=== PATIENT | female | born 1960 | race Caucasian/White ===

== ENCOUNTER 2016-10-26 21:45 | Emergency (ER) | payer BC ==
[2016-10-26 21:56] VITALS: BP 148/73
--- NOTE | 2016-10-26 22:13 | EDM.PDOC ---
[id number]: COPD LOW OXYGEN LEVELS Time Seen by Provider: 10/26/16 21:55 Source of Information: Reports: Patient History Limitations: Reports: No Limitations - History of Present Illness INITIAL COMMENTS - FREE TEXT/NARRATIVE: The patient is a 56-year-old female with a history of COPD who comes in with a chief complaint of cough and shortness of breath. She states she's been ill for about 3 weeks. She's had a persistent cough. It is not productive. No fever but she has had the chills. Over the past couple of days she's also had worsening rhinorrhea and nasal congestion. This makes it hard for her to breathe through her nasal cannula at home. She's been using her oxygen at home. She's also been using nebulizer treatments which helped temporarily. She has not been on steroids or antibiotics recently. No ill contacts. Using home oximeter shows oxygen saturations in the high 80s and low 90s. Treatments DOUBLE NEEDLE STITCHER: Reports: Other (see below) Other Treatments DOUBLE NEEDLE STITCHER: inhaler and neb - Related Data Allergies Allergy/AdvReac Type Severity Reaction Status Date / Time No Known Allergies Allergy Verified 10/01/15 09:58 Home Meds: Home Meds ALPRAZolam [Alprazolam] 0.5 mg PO Q12HR PRN 10/01/15 [History] Albuterol [IJD: Ventolin HFA] 2 inhalation PO DAILY PRN 10/01/15 [History] Allopurinol [Zyloprim] 300 mg PO DAILY 10/01/15 [History] Atenolol 50 mg PO BID 10/01/15 [History] Gemfibrozil 600 mg PO BID 10/01/15 [History] Hydrochlorothiazide 25 mg PO DAILY 10/01/15 [History] Levothyroxine [Synthroid] 50 mcg PO ACBREAKFAST 10/01/15 [History] Simvastatin [Zocor] 40 mg PO BEDTIME 10/01/15 [History] Aspirin 162 mg PO BRK #30 tab.chew 10/04/15 [Rx] Nicotine [Habitrol] 21 mg TRDERM DAILY #30 patch 10/04/15 [Rx] Roflumilast [Daliresp] 500 mcg PO DAILY #30 tablet 10/04/15 [Rx] Albuterol/Ipratropium [DuoNeb 3.0-0.5 MG/3 ML] 3 ml NEB Q4H PRN #30 neb [Rx] Doxycycline [Vibramycin] 100 mg PO Q12HR #20 cap 10/26/16 [Rx] Fluticasone Propionate 1 spray NS DAILY #1 bottle 10/26/16 [Rx] Prednisone [IJD: predniSONE] 60 mg PO DAILY #4 dose 10/26/16 [Rx] Pseudoephedrine [Sudogest] 30 mg PO Q6H PRN #30 tablet 10/26/16 [Rx] Past Medical History Cardiovascular History: Reports: High Cholesterol, Hypertension Respiratory History: Reports: COPD, Pneumonia, Recurrent, Sleep Apnea Genitourinary History: Reports: Renal Calculus Other Genitourinary History: 2001 kidney stone removed laparascopically and stent placed Musculoskeletal History: Reports: Gout, Osteoarthritis Psychiatric History: Reports: Anxiety Endocrine/Metabolic History: Reports: Hypothyroidism Hematologic History: Reports: Other (See Below) Other Hematologic History: today HGB is 19.9 Other Dermatologic History: brown discoloration (freckles) noted to bilateral feet and legs - Past Surgical History Other Musculoskeletal Surgeries/Procedures:: 2005 surgery on neck to fuse c 4-5- 6 Social & Family History - Family History Cardiac: Reports: CAD, Hypertension, [place] GI: Reports: Colon Polyps Musculoskeletal: Reports: Arthritis Psychiatric: Reports: Anxiety Endocrine/Metabolic: Reports: Diabetes, type II Oncologic: Reports: Other (See Below) Other Oncologic Family History: stomach - Tobacco Use Smoking Status *Q: Current Every Day Smoker Years of Tobacco use: 37 Packs/Tins Daily: 1 Used Tobacco, but Quit: No Second Hand Smoke Exposure: No - Caffeine Use Caffeine Use: Reports: None - Recreational Drug Use Recreational Drug Use: No - Living Situation & Occupation Living situation: Reports: ED ROS GENERAL - Review of Systems Review Of Systems: See Below Constitutional: Reports: Chills, Malaise, Weakness, Fatigue. Denies: Fever HEENT: Reports: Rhinitis, Throat Pain Respiratory: Reports: Shortness of Breath, Cough Cardiovascular: Denies: Chest Pain, Edema GI/Abdominal: Reports: Nausea. Denies: Abdominal Pain, Vomiting ED EXAM, GENERAL - Physical Exam Exam: See Below Exam Limited By: No Limitations General Appearance: Alert, WD/WN, No Apparent Distress Eye Exam: Bilateral Eye: Normal Inspection Ears: Normal External Exam Nose: Normal Inspection, Normal Mucosa, No Blood, Nasal Drainage Throat/Mouth: Normal Inspection, Normal Oropharynx, Normal Voice, No Airway Compromise Head: Atraumatic, Normocephalic Neck: Normal Inspection, Supple, Non-Tender, Full Range of Motion Respiratory/Chest: No Respiratory Distress, Lungs Clear, No Accessory Muscle Use , Chest Non-Tender, Decreased Breath Sounds Cardiovascular: Normal Peripheral Pulses, Regular Rate, Rhythm, No Murmur GI/Abdominal: Soft, Non-Tender, No Distention. No: Rebound, Tender Back Exam: Normal Inspection Neurological: Alert, Oriented, Normal Cognition, No Motor/Sensory Deficits Psychiatric: Normal Affect, Normal Mood Skin Exam: Warm, Dry, Intact, Normal Color, No Rash Course - Vital Signs Last Recorded V/S: Last Vital Signs Temp 36.1 C 10/26/16 21:54 Pulse 77 10/26/16 21:54 Resp 24 H 10/26/16 21:54 BP 148/73 H 10/26/16 21:54 Pulse Ox 92 L 10/26/16 22:41 - Orders/Labs/Meds Orders: Active Orders 24 hr Category Date Time Status EKG Documentation Completion [RC] STAT Care 10/26/16 22:02 Active RT Aerosol Therapy [RC] ASDIRECTED Care 10/26/16 22:31 Active Chest 1V Frontal [CR] Stat Exams 10/26/16 22:12 Taken Meds: Medications Discontinued Medications Generic Name Dose Route Start Last Admin Trade Name Freq PRN Reason Stop Dose Admin Albuterol/Ipratropium 3 ml 10/26/16 22:31 10/26/16 22:41 Duoneb 3.0-0.5 Mg/3 Ml NEB 10/26/16 22:32 3 ml ONETIME ONE Administration Doxycycline Hyclate 100 mg 10/26/16 22:29 10/26/16 22:39 Vibramycin PO 10/26/16 22:30 100 mg ONETIME ONE Administration Prednisone 60 mg 10/26/16 22:29 10/26/16 22:39 Prednisone PO 10/26/16 22:30 60 mg ONETIME ONE Administration - Re-Assessments/Exams Free Text/Narrative Re-Assessment/Exam: 10/26/16 23:16 EKG shows nonspecific T wave flattening inferior and lateral leads, similar to prior. CXR shows no ptx or pna, similar to prior. Will treat for COPD exacerbation/bronchitis as well as recommend decongestants and nasal spray. Discussed return precautions/need for follow-up. Departure - Departure Time of Disposition: 22:34 Disposition: Home, Self-Care 01 Clinical Impression: COPD exacerbation, Bronchitis - Discharge Information Prescriptions: Doxycycline [Vibramycin] 100 mg PO Q12HR #20 cap Albuterol/Ipratropium [DuoNeb 3.0-0.5 MG/3 ML] 3 ml NEB Q4H PRN #30 neb PRN Reason: Wheezing Fluticasone Propionate 1 spray NS DAILY #1 bottle Prednisone [IJD: predniSONE] 60 mg PO DAILY #4 dose Pseudoephedrine [Sudogest] 30 mg PO Q6H PRN #30 tablet PRN Reason: nasal congestion Instructions: Chronic Obstructive Pulmonary Disease Exacerbation, [id number] , Acute Bronchitis, [id number] Referrals: Krysten Live, PIT HOIST OPERATOR [Primary Care Provider] - Forms: ED Department Discharge - My Orders Last 24 Hours: My Active Orders 10/26/16 22:02 EKG Documentation Completion [RC] STAT 10/26/16 22:12 Chest 1V Frontal [CR] Stat 10/26/16 22:31 RT Aerosol Therapy [RC] ASDIRECTED - Assessment/Plan Last 24 Hours: My Active Orders 10/26/16 22:02 EKG Documentation Completion [RC] STAT 10/26/16 22:12 Chest 1V Frontal [CR] Stat 10/26/16 22:31 RT Aerosol Therapy [RC] ASDIRECTED
[2016-10-26] MEDS ORDERED: predniSONE 20 MG Tab PO ONE (22:29)
[2016-10-26] MEDS ORDERED: Doxycycline 100 MG Cap PO ONE (22:29)
[2016-10-26] MEDS ORDERED: Albuterol/Ipratropium 3.0-0.5 MG/3 ML Neb Soln NEB ONE (22:31)
--- NOTE | 2016-10-27 06:50 | CR ---
Chest: Portable view of the chest was obtained. Comparison: Previous chest x-ray of 09/27/15. Heart size and mediastinum are normal. Minimal atelectasis within the right midlung is seen. Lungs otherwise are clear. Previous cervical spine surgery is seen. Bony structures are otherwise grossly intact. Impression: 1. Minimal atelectasis. Nothing acute is appreciated on portable chest x-ray. Diagnostic code #2
== END 2016-10-26 23:23 | disposition home or self-care (01) ==
LOC: JD.ED 21:45
DX: J44.1 Chronic obstructive pulmonary disease with (acute) exacerbation (principal); I10 Essential (primary) hypertension; M19.90 Unspecified osteoarthritis, unspecified site; F41.9 Anxiety disorder, unspecified; E03.9 Hypothyroidism, unspecified; F17.210 Nicotine dependence, cigarettes, uncomplicated; Z87.442 Personal history of urinary calculi; Z87.01 Personal history of pneumonia (recurrent); Z98.1 Arthrodesis status; Z79.899 Other long term (current) drug therapy
CPT/HCPCS: 71010; 93005; 94664; 99284; A9270

== ENCOUNTER 2019-05-27 18:11 | Emergency (ER) | payer BC ==
[2019-05-27 18:35] VITALS: BP 136/81; PULSE 70
--- NOTE | 2019-05-27 21:20 | EDM.PDOC ---
ED HPI GENERAL MEDICAL PROBLEM - General Chief Complaint: Respiratory Problem Stated Complaint: SOB Time Seen by Provider: 05/27/19 20:42 Source of Information: Reports: Patient, Family () History Limitations: Reports: No Limitations - History of Present Illness INITIAL COMMENTS - FREE TEXT/NARRATIVE: Mrs. Shi is a very pleasant 58-year-old woman with a past medical history significant for alpha-1 antitrypsin deficiency and PFT-proven COPD, along with obstructive sleep apnea on nightly nasal CPAP, who now presents to the ED stating that she has had 8 to 10 days of dyspnea, progressively worsening, particularly over the last 3 to 4 days, along with 8 to 10 days of a cough that was initially nonproductive, but has since become productive of greenish sputum. She has felt feverish, feeling hot, cold, and achy for the past 10 days , but has not actually had a fever. She has not been wheezing. No sore throat or ear pain. She states that she was seen at the [facility] yesterday, Friday, 2019, where an influenza swab was negative, and she was told that a chest x-ray and blood work was unremarkable. She notes that her oxygen saturation was found to be 86% on room air, but that nothing was done about that. She was prescribed a 5-day course of prednisone 20 mg/day. She took 1 dose yesterday, but has not taken any today. The patient states that she has been using her albuterol nebulizer 3-4 times a day, without any relief of her symptoms. She has not been using her albuterol MDI. The patient checks her blood glucose sporadically. The last time she checked it was 05/24/2019, finding it to be 134 which is a little high for her. Other than the above symptoms, the patient denies recent chest pain, palpitations, abdominal pain, urinary symptoms, recent weight gain or weight loss, recent bloody bowel movements or black bowel movements, recent joint aches , headaches, or rashes. Here in the ED, the patient is found to be hemodynamically stable and afebrile, but with an oxygen saturation of 75% on room air, up to 90% on 4 L of oxygen per nasal cannula. The patient's PCP is BASHIR Wade, in [place]. Her Flight Technician is Dr. Elaine Quiroz. She last saw Dr. Quiroz in 2016. She did not receive an influenza vaccine this season, and declined an offer to receive one here today. - Related Data Allergies Allergy/AdvReac Type Severity Reaction Status Date / Time No Known Allergies Allergy Verified 10/01/15 09:58 Home Meds: Home Meds ALPRAZolam [Alprazolam] 0.5 mg PO Q12HR PRN 10/01/15 [History] Albuterol [IJD: Ventolin HFA] 2 inhalation PO DAILY PRN 10/01/15 [History] Allopurinol [Zyloprim] 300 mg PO DAILY 10/01/15 [History] Gemfibrozil 600 mg PO BID 10/01/15 [History] Hydrochlorothiazide 25 mg PO DAILY 10/01/15 [History] Levothyroxine [Synthroid] 50 mcg PO ACBREAKFAST 10/01/15 [History] Simvastatin [Zocor] 40 mg PO BEDTIME 10/01/15 [History] atenoloL [Atenolol] 50 mg PO BID 10/01/15 [History] Aspirin 162 mg PO BRK #30 tab.chew 10/04/15 [Rx] Nicotine [Habitrol] 21 mg TRDERM DAILY #30 patch 10/04/15 [Rx] Roflumilast [Daliresp] 500 mcg PO DAILY #30 tablet 10/04/15 [Rx] Albuterol/Ipratropium [DuoNeb 3.0-0.5 MG/3 ML] 3 ml NEB Q4H PRN #30 neb [Rx] Doxycycline [Vibramycin] 100 mg PO Q12HR #20 cap 10/26/16 [Rx] Fluticasone Propionate 1 spray NS DAILY #1 bottle 10/26/16 [Rx] Prednisone [IJD: predniSONE] 60 mg PO DAILY #4 dose 10/26/16 [Rx] Pseudoephedrine [Sudogest] 30 mg PO Q6H PRN #30 tablet 10/26/16 [Rx] Past Medical History Cardiovascular History: Reports: High Cholesterol, Hypertension Respiratory History: Reports: COPD (PFT-proven), Sleep Apnea (nightly nasal CPAP 13), Other (See Below) (Alpha-1 antitrypsin deficiency) Genitourinary History: Reports: Renal Calculus, Urinary Incontinence (stress incontinence) Psychiatric History: Reports: Anxiety Endocrine/Metabolic History: Reports: Diabetes, Type II, Hypothyroidism, Obesity /BMI 30+ - Past Surgical History Female Surgical History: Reports: Ureteral Stent (2001), Other (See Below) ( Ureterolith extraction) Neurological Surgical History: Reports: C-Spine (C4-C6 ACDF 2005) Social & Family History - Family History Cardiac: Reports: CAD, Hypertension, RI GI: Reports: Colon Polyps Musculoskeletal: Reports: Arthritis Psychiatric: Reports: Anxiety Endocrine/Metabolic: Reports: Diabetes, type II Oncologic: Reports: Other (See Below) Other Oncologic Family History: stomach - Tobacco Use Smoking Status *Q: Current Every Day Smoker Years of Tobacco use: 40 Packs/Tins Daily: 1 Packs/Tins Daily Comment: Down from 2 ppd - Caffeine Use Caffeine Use: Reports: Coffee - Alcohol Use Alcohol Use History: No - Recreational Drug Use Recreational Drug Use: No - Living Situation & Occupation Living situation: Reports: , with Spouse Occupation: Unemployed ED ROS GENERAL - Review of Systems Review Of Systems: Comprehensive ROS is negative, except as noted in HPI. ED EXAM, GENERAL - Physical Exam Exam: See Below Exam Limited By: No Limitations General Appearance: Alert, WD/WN, No Apparent Distress Eye Exam: Bilateral Eye: EOMI, Normal Inspection Ears: Normal External Exam, Normal Canal, Hearing Grossly Normal, Normal TMs Nose: Normal Inspection, Normal Mucosa, No Blood Throat/Mouth: Normal Inspection, Normal Lips, Normal Teeth, Normal Gums, Normal Oropharynx, Normal Voice, No Airway Compromise Head: Atraumatic, Normocephalic Neck: Normal Inspection, Supple, Non-Tender, Full Range of Motion. No: Lymphadenopathy (L), Lymphadenopathy (R) Respiratory/Chest: No Respiratory Distress, No Accessory Muscle Use, Decreased Breath Sounds (throughout), Prolonged Expiration (mild). No: Crackles, Rhonchi , Wheezing, Stridor Cardiovascular: Normal Peripheral Pulses, Regular Rate, Rhythm, No Edema, No Gallop, No JVD, No Murmur, No Rub Peripheral Pulses: 4+: Radial (L), Radial (R) GI/Abdominal: Normal Bowel Sounds, Soft, Non-Tender, No Organomegaly, No Distention, No Abnormal Bruit, No Mass (Female) Exam: Deferred Rectal (Female) Exam: Deferred Back Exam: Normal Inspection, Full Range of Motion, NT Extremities: Normal Inspection, Normal Range of Motion, No Pedal Edema, Normal Capillary Refill Neurological: Alert, Oriented, Normal Cognition, No Motor/Sensory Deficits Psychiatric: Normal Affect Skin Exam: Warm, Dry, Intact, Normal Color, No Rash Course - Vital Signs Last Recorded V/S: Last Vital Signs Temp 36.7 C 05/27/19 18:29 Pulse 70 05/27/19 18:29 Resp 18 05/27/19 18:29 BP 136/81 05/27/19 18:29 Pulse Ox 75 L 05/27/19 18:29 - Orders/Labs/Meds Orders: Active Orders 24 hr Category Date Time Status Chest 1V Frontal [CR] Stat Exams 05/27/19 18:48 Taken CULTURE BLOOD [BC] Stat Lab 05/27/19 19:16 Received CULTURE BLOOD [BC] Stat Lab 05/27/19 19:25 Received INFLUENZA A+B AG SCREEN [RM] Stat Lab 05/27/19 18:48 Ordered Blood Culture x2 Reflex Set [OM.PC] Stat Oth 05/27/19 18:48 Ordered Labs: Laboratory Tests 05/27/19 05/27/19 05/27/19 Range/Units 19:16 19:16 19:16 WBC 10.58 H (3.98-10.04) K/mm3 RBC 5.44 H (3.98-5.22) M/mm3 Hgb 17.3 H (11.2-15.7) gm/dl Hct 49.7 H (34.1-44.9) % MCV 91.4 D (79.4-94.8) fl MCH 31.8 (25.6-32.2) pg MCHC 34.8 (32.2-35.5) g/dl RDW Std Deviation 47.3 H (36.4-46.3) fL Plt Count 319 D (182-369) K/mm3 MPV 10.1 (9.4-12.3) fl Neut % (Auto) 63.0 (34.0-71.1) % Lymph % (Auto) 22.3 (19.3-51.7) % [place] % (Auto) 12.5 (4.7-12.5) % Eos % (Auto) 1.3 (0.7-5.8) Baso % (Auto) 0.2 (0.1-1.2) % Neut # (Auto) 6.67 H (1.56-6.13) K/mm3 Lymph # (Auto) 2.36 (1.18-3.74) K/mm3 [place] # (Auto) 1.32 H (0.24-0.36) K/mm3 Eos # (Auto) 0.14 (0.04-0.36) K/mm3 Baso # (Auto) 0.02 (0.01-0.08) K/mm3 Manual Slide Review Normal smear D-Dimer, Quantitative < 0.19 L (0.19-0.50) mg/L Sodium 142 (136-145) mEq/L Potassium 2.9 L (3.5-5.1) mEq/L Chloride 99 (98-107) mEq/L Carbon Dioxide 30 (21-32) mEq/L Anion Gap 15.9 H (5-15) BUN 29 H (7-18) mg/dL Creatinine 1.3 H (0.55-1.02) mg/dL Est Cr Clr Drug Dosing 44.70 mL/min Estimated GFR (MDRD) 42 (>60) mL/min BUN/Creatinine Ratio 22.3 H (14-18) Glucose 117 H (74-106) mg/dL Calcium 9.6 (8.5-10.1) mg/dL Total Bilirubin 0.8 (0.2-1.0) mg/dL AST 21 (15-37) U/L ALT 45 (14-59) U/L Alkaline Phosphatase 68 (46-116) U/L C-Reactive Protein 0.6 (<1.0) mg/dL Total Protein 8.6 H (6.4-8.2) g/dl Albumin 4.0 (3.4-5.0) g/dl Globulin 4.6 gm/dL Albumin/Globulin Ratio 0.9 L (1-2) Meds: Medications Discontinued Medications Generic Name Dose Route Start Last Admin Trade Name Freq PRN Reason Stop Dose Admin Potassium Chloride 40 meq 05/27/19 21:59 05/27/19 22:12 Klor-Con M20 PO 05/27/19 22:00 40 meq ONETIME ONE Administration - Re-Assessments/Exams Free Text/Narrative Re-Assessment/Exam: 05/27/19 21:15 As above, the patient has been suffering with viral URI-like symptoms for the past 8 to 10 days, including cough productive of greenish sputum and dyspnea without wheezing. She was told that her oxygen saturation was low yesterday when seen at the [facility], and her oxygen saturation is quite low here, as well. Currently she is saturating about 90% on 4 L of oxygen per nasal cannula. The triage nurse ordered a work-up including a CBC, CMP, CRP, D-dimer, 2 sets of blood cultures, a portable chest x-ray, and an influenza swab. All of these have been seen, with the exception of the influenza swab, which the patient declined, since she just had a negative one yesterday. 05/27/19 21:30 Portable chest radiograph appears to be grossly normal. The cardiac silhouette is within normal limits. No pulmonary vascular congestion. No pleural effusions. No focal infiltrate. No pneumothorax. Formal read per the Radiologist pending. 05/27/19 21:59 The patient CBC is remarkable for a WBC count elevated at 10.58, but with a normal smear and no bandemia. Her H/H is elevated at 17.3/49.7, with the remainder of her CBC being unremarkable. Her CMP is remarkable for a potassium depressed at 2.9, and anion gap elevated at 15.9 with a bicarbonate normal at 30, a BUN/Cr elevated at 29/1.3, and a blood glucose elevated at 117, with the remainder of her CMP being unremarkable. Her CRP is within normal limits at 0.6. Her D-dimer is undetectably low. The patient's potassium is likely depressed because of the albuterol that she has been taking. I have ordered 40 mEq of oral KCl. The patient's BUN/Cr was 17/1.0 on 10/03/2015. I suspect that the patient has underlying emphysema, but primarily emphysema, not so much chronic bronchitis, and that her current symptoms are due to a viral URI, possibly with a postnasal drip, causing her cough, as opposed to a COPD exacerbation. She has no wheezing or rhonchi on auscultation, and acknowledges that she has not been wheezing. These features are not consistent with either acute or chronic bronchitis. Additionally, her symptoms did not improve with albuterol, which is not consistent with chronic bronchitis. For today's purposes, I believe the patient can safely be discharged home, but we need to arrange for supplemental oxygen. Currently she is saturating 92% on 4 L per nasal cannula. [facility] will be coming to the ED tonight to provide the patient with oxygen that she can go home with. I would then like her to follow-up with her Flight Technician at the next available appointment to make more permanent arrangements. With respect to the patient's hypokalemia and renal insufficiency, I advised the patient to eat high-potassium foods and stay well-hydrated. I would like her to follow-up with her PCP to have a chemistry panel repeated in about 1 week. The patient is agreeable. Departure - Departure Time of Disposition: 23:02 Disposition: Home, Self-Care 01 Clinical Impression: Viral URI with cough, Hypoxemia, Hypokalemia, Renal insufficiency - Discharge Information *PRESCRIPTION DRUG MONITORING PROGRAM REVIEWED*: Not Applicable *COPY OF PRESCRIPTION DRUG MONITORING REPORT IN PATIENT TANISHA: Not Applicable Instructions: Hypoxia, Upper Respiratory Infection, Adult, [id number] Referrals: Kate Live PA [Primary Care Provider] - Elaine Quiroz MD [Ordering Only Provider] - Forms: ED Department Discharge Additional Instructions: You were seen in the emergency room for 8 to 10 days of a cough and shortness of breath. Work-up in the ER included blood work, 2 sets of blood cultures, and a chest x- ray. Your work-up found your potassium to be low at 2.9, and your kidney function to be decreased. Her oxygen saturation was found to be significantly depressed at 75% on room air, up to 90% on 4 L of oxygen per nasal cannula. The remainder of your work-up was unremarkable. You do not have pneumonia. You do not have a blood clot in your lungs. Based on your history, physical exam, and ER test, your cough and shortness of breath is most likely due to a viral upper respiratory infection. As discussed, unfortunately, there are no medicines to treat a viral URI - it will have to run its course. Your oxygen saturation was low enough that you require supplemental oxygen at all times. [facility] have set you up with supplemental oxygen. We recommend that you follow-up with your electrical maintenance man, Dr. Elaine Quiroz, at the next available appointment. We recommend that you eat foods rich in potassium, and stay well-hydrated. We recommend that you follow-up with your PCP, BASHIR Wade, in 1 week, to have a chemistry panel rechecked. Any other problems, please do not hesitate to return to the ER. Sepsis Event Note - Evaluation Sepsis Screening Result: No Definite Risk - Focused Exam Vital Signs: Vital Signs Temp Pulse Resp BP Pulse Ox 05/27/19 18:29 36.7 C 70 18 136/81 75 L Date Exam was Performed: 05/28/19 Time Exam was Performed: 02:56 - My Orders Last 24 Hours: My Active Orders 05/27/19 18:48 Chest 1V Frontal [CR] Stat INFLUENZA A+B AG SCREEN [RM] Stat Blood Culture x2 Reflex Set [OM.PC] Stat 05/27/19 19:16 CULTURE BLOOD [BC] Stat 05/27/19 19:25 CULTURE BLOOD [BC] Stat - Assessment/Plan Last 24 Hours: My Active Orders 05/27/19 18:48 Chest 1V Frontal [CR] Stat INFLUENZA A+B AG SCREEN [RM] Stat Blood Culture x2 Reflex Set [OM.PC] Stat 05/27/19 19:16 CULTURE BLOOD [BC] Stat 05/27/19 19:25 CULTURE BLOOD [BC] Stat
[2019-05-27] MEDS ORDERED: Potassium Chloride 20 MEQ Tab.ER PO ONE (21:59)
--- NOTE | 2019-05-28 07:02 | CR ---
Chest: Portable view of the chest was obtained. Comparison: Prior chest x-ray of 10/26/16. Heart size and mediastinum are normal. Linear atelectasis is seen within the right lung base. Lungs otherwise are clear. Prior cervical spine surgery is noted. Impression: 1. Right basilar atelectasis. 2. Nothing acute is otherwise seen on portable chest x-ray. Diagnostic code #2 This report was dictated in [place] Standard Time
== END 2019-05-27 23:42 | disposition home or self-care (01) ==
LOC: JD.ED 18:11
DX: R09.02 Hypoxemia (principal); E87.6 Hypokalemia; J06.9 Acute upper respiratory infection, unspecified; N28.9 Disorder of kidney and ureter, unspecified; J44.9 Chronic obstructive pulmonary disease, unspecified; F41.9 Anxiety disorder, unspecified; F17.210 Nicotine dependence, cigarettes, uncomplicated; Z79.51 Long term (current) use of inhaled steroids; Z79.82 Long term (current) use of aspirin; Z79.899 Other long term (current) drug therapy
CPT/HCPCS: 36415; 71045; 80053; 85025; 85379; 86140; 87040; 99285; A9270; 99283

== ENCOUNTER 2020-03-25 21:12 | Emergency (ER) | payer BC ==
[2020-03-25 21:39] VITALS: BP 117/52; PULSE 69
[2020-03-25] MEDS ORDERED: Sodium Chloride 0.9% 1,000 ML IV SCH (22:15)
--- NOTE | 2020-03-25 22:18 | EDM.PDOC ---
ED HPI GENERAL MEDICAL PROBLEM - General Chief Complaint: Respiratory Problem Stated Complaint: possible covid low oxygen Time Seen by Provider: 03/25/20 21:24 Source of Information: Reports: Patient History Limitations: Reports: No Limitations - History of Present Illness INITIAL COMMENTS - FREE TEXT/NARRATIVE: This is a 59-year-old female. She has a history of COPD with periodic exacerbations due to bronchitis and viral infections. She has a history of alpha 1 antitrypsin deficiency and she stopped smoking in May 2019. Apparently her son came over to stay with her a week or 10 days ago he developed some symptoms and was tested for Covid and came back positive. Then last Friday she states she started getting a cough and shortness of breath and a fever though she did not document it with body aches and she lost her taste and smell on Friday as well. She says the family is sick and she feels like she is sick. She does have oxygen at home that she uses periodically. When she is on 3 L it is about 85 to 87% and on 4 L it will go up to 93-94%. She does have COPD and uses a CPAP at night with oxygen supplementation. Complains of a sore throat and some mild nasal congestion. She has additional history of renal insufficiency but no edema low potassium, hypertension, coronary artery disease with a history of myocardial infarction and diabetes for which she takes Metformin. When talking to the patient during this interview she can talk in full sentences without gasping for breath. Does not appear to be in acute distress. Her temperature upon arrival was 97.6. - Related Data Allergies Allergy/AdvReac Type Severity Reaction Status Date / Time No Known Allergies Allergy Verified 03/25/20 21:39 Home Meds: Home Meds ALPRAZolam [Alprazolam Xr] 0.5 mg PO BID PRN 03/25/20 [History] Aspirin [Adult Low Dose Aspirin EC] 81 mg PO DAILY 03/25/20 [History] Fluticasone/Salmeterol [Advair 250-50] 1 puff INH DAILY 03/25/20 [History] Levothyroxine Sodium [Levothyroxine] 125 mcg PO DAILY 03/25/20 [History] Magnesium Glycinate, Mag Oxide [Magnesium Glycinate] 2 cap PO DAILY 03/25/20 [History] Rosuvastatin [Crestor] 10 mg PO BEDTIME 03/25/20 [History] atenoloL [Atenolol] 50 mg PO DAILY 03/25/20 [History] gemfibroziL [Gemfibrozil] 600 mg PO DAILY 03/25/20 [History] hydroCHLOROthiazide [Hydrochlorothiazide] 25 mg PO DAILY 03/25/20 [History] lisinopriL [Lisinopril] 5 mg PO DAILY 03/25/20 [History] metFORMIN [Glucophage] 500 mg PO BID 03/25/20 [History] dexAMETHasone [Dexamethasone] 8 mg PO BID #8 tablet 03/26/20 [Rx] Past Medical History Cardiovascular History: Reports: High Cholesterol, Hypertension Respiratory History: Reports: COPD, Sleep Apnea, Other (See Below) Genitourinary History: Reports: Renal Calculus, Urinary Incontinence Other Genitourinary History: 2001 kidney stone removed laparascopically and stent placed Musculoskeletal History: Reports: Gout, Osteoarthritis Psychiatric History: Reports: Anxiety Endocrine/Metabolic History: Reports: Diabetes, Type II, Hypothyroidism, Obesity/BMI 30+ Hematologic History: Reports: Other (See Below) Other Hematologic History: today HGB is 19.9 Other Dermatologic History: brown discoloration (freckles) noted to bilateral feet and legs - Past Surgical History Female Surgical History: Reports: Ureteral Stent, Other (See Below) Neurological Surgical History: Reports: C-Spine Other Musculoskeletal Surgeries/Procedures:: 2005 surgery on neck to fuse c 4-5-6 Social & Family History - Family History Cardiac: Reports: CAD, Hypertension, [place] GI: Reports: Colon Polyps Musculoskeletal: Reports: Arthritis Psychiatric: Reports: Anxiety Endocrine/Metabolic: Reports: Diabetes, type II Oncologic: Reports: Other (See Below) Other Oncologic Family History: stomach - Tobacco Use Tobacco Use Status *Q: Former Tobacco User Used Tobacco, but Quit: Yes Month/Year Tobacco Last Used: few years ago - Caffeine Use Caffeine Use: Reports: None - Recreational Drug Use Recreational Drug Use: No - Living Situation & Occupation Living situation: Reports: , with Spouse Occupation: Unemployed ED ROS GENERAL - Review of Systems Review Of Systems: See Below Constitutional: Reports: Fever, Weakness, Fatigue HEENT: Reports: Rhinitis, Throat Pain Respiratory: Reports: Shortness of Breath, Wheezing, Cough. Denies: Sputum Cardiovascular: Denies: Chest Pain Endocrine: Reports: Fatigue, High Glucose GI/Abdominal: Denies: Abdominal Pain, Diarrhea, Nausea, Vomiting : Reports: No Symptoms Musculoskeletal: Reports: No Symptoms Skin: Reports: No Symptoms Neurological: Reports: No Symptoms Psychiatric: Reports: No Symptoms Hematologic/Lymphatic: Reports: No Symptoms ED EXAM, GENERAL - Physical Exam Exam: See Below Exam Limited By: No Limitations General Appearance: Alert, WD/WN, No Apparent Distress, Lethargic, Obese Eye Exam: Bilateral Eye: Normal Inspection Ears: Normal External Exam, Normal Canal, Normal TMs Ear Exam: Bilateral Ear: Canal Normal, TM normal Nose: Normal Inspection, Other (Minimal nasal congestion noted.) Throat/Mouth: Normal Inspection, Normal Lips, Normal Voice, No Airway Compromis e, Other (Her mouth is dry her tongue is dry her oropharynx is dry, there might be some mild inflammation of her oropharynx but there is no swelling and no exudates noted) Head: Normocephalic Neck: Supple Respiratory/Chest: No Respiratory Distress, Other (Does have decreased breath sounds in the bases bilaterally however I do not hear any rhonchi or crackles or wheezing, her upper castellanos have a very faint breath sounds again no wheezing or rhonchi or crackles noted. She is not hyperventilating at this time.) Cardiovascular: Regular Rate, Rhythm, No Murmur GI/Abdominal: Soft, Other (Patient is obese she complains of tenderness all over her abdomen but it is soft and there is no rebound noted in any of the 4 quadrants.) Back Exam: Decreased Range of Motion Extremities: Normal Inspection, Normal Range of Motion. No: Pedal Edema Neurological: Alert, Oriented Psychiatric: Flat Affect Skin Exam: Warm, Dry, Other (Skin turgor is decreased) #1 Interpretation EKG Date: 03/25/20 Time: 22:25 EKG Interpretation Comments: EKG shows a normal sinus rhythm rate of 70. There is no acute ST elevation and there is no acute ischemia noted. Course - Vital Signs Last Recorded V/S: Last Vital Signs Temp 97.6 F 03/25/20 21:36 Pulse 69 03/25/20 21:36 Resp 16 03/25/20 21:36 BP 117/52 L 03/25/20 21:36 Pulse Ox 85 L 03/25/20 21:36 - Orders/Labs/Meds Orders: Active Orders 24 hr Category Date Time Status EKG 12 Lead [EKG Documentation Completion] [RC] STAT Care 03/25/20 22:05 Active CXR [Chest 1V Frontal] [CR] Stat Exams 03/25/20 22:04 Taken UA W/MICROSCOPIC [URIN] Stat Lab 03/25/20 22:05 Ordered Sodium Chloride 0.9% [Normal Saline] 1,000 ml Med 03/25/20 22:15 Active IV ASDIRECTED Medication Orders Sodium Chloride (Normal Saline) 1,000 mls @ 1,000 mls/hr IV ASDIRECTED SUJIT Last Admin: 03/25/20 22:34 Dose: 1,000 mls/hr Documented by: MISSY Labs: Laboratory Tests 03/25/20 03/25/20 03/25/20 Range/Units 22:30 22:30 22:30 WBC 6.33 (3.98-10.04) K/mm3 RBC 4.13 (3.98-5.22) M/mm3 Hgb 12.8 D (11.2-15.7) gm/dl Hct 37.9 (34.1-44.9) % MCV 91.8 (79.4-94.8) fl MCH 31.0 (25.6-32.2) pg MCHC 33.8 (32.2-35.5) g/dl RDW Std Deviation 46.1 (36.4-46.3) fL Plt Count 308 (182-369) K/mm3 MPV 10.0 (9.4-12.3) fl Neut % (Auto) 64.3 (34.0-71.1) % Lymph % (Auto) 20.2 (19.3-51.7) % [place] % (Auto) 12.0 (4.7-12.5) % Eos % (Auto) 2.7 (0.7-5.8) Baso % (Auto) 0.2 (0.1-1.2) % Neut # (Auto) 4.07 (1.56-6.13) K/mm3 Lymph # (Auto) 1.28 (1.18-3.74) K/mm3 [place] # (Auto) 0.76 H (0.24-0.36) K/mm3 Eos # (Auto) 0.17 (0.04-0.36) K/mm3 Baso # (Auto) 0.01 (0.01-0.08) K/mm3 Manual Slide Review Normal smear Sodium 136 (136-145) mEq/L Potassium 3.3 L (3.5-5.1) mEq/L Chloride 97 L (98-107) mEq/L Carbon Dioxide 27 (21-32) mEq/L Anion Gap 15.3 H (5-15) BUN 69 H D (7-18) mg/dL Creatinine 2.2 H (0.55-1.02) mg/dL Est Cr Clr Drug Dosing TNP Estimated GFR (MDRD) 23 (>60) mL/min BUN/Creatinine Ratio 31.4 H (14-18) Glucose 153 H (74-106) mg/dL Calcium 9.1 (8.5-10.1) mg/dL Ferritin (8-252) ng/ml Total Bilirubin 0.6 (0.2-1.0) mg/dL AST 40 H (15-37) U/L ALT 38 (14-59) U/L Alkaline Phosphatase 69 (46-116) U/L Lactate Dehydrogenase 243 H (81-234) U/L Troponin I < 0.017 (0.00-0.056) ng/mL C-Reactive Protein 4.3 H* (<1.0) mg/dL Total Protein 8.4 H (6.4-8.2) g/dl Albumin 3.6 (3.4-5.0) g/dl Globulin 4.8 gm/dL Albumin/Globulin Ratio 0.8 L (1-2) SARS-CoV-2 RNA ([facility]) Positive H (NEGATIVE) Group A Strep (PCR) (NOT DETECT) 03/25/20 03/25/20 Range/Units 22:30 22:30 WBC (3.98-10.04) K/mm3 RBC (3.98-5.22) M/mm3 Hgb (11.2-15.7) gm/dl Hct (34.1-44.9) % MCV (79.4-94.8) fl MCH (25.6-32.2) pg MCHC (32.2-35.5) g/dl RDW Std Deviation (36.4-46.3) fL Plt Count (182-369) K/mm3 MPV (9.4-12.3) fl Neut % (Auto) (34.0-71.1) % Lymph % (Auto) (19.3-51.7) % [place] % (Auto) (4.7-12.5) % Eos % (Auto) (0.7-5.8) Baso % (Auto) (0.1-1.2) % Neut # (Auto) (1.56-6.13) K/mm3 Lymph # (Auto) (1.18-3.74) K/mm3 [place] # (Auto) (0.24-0.36) K/mm3 Eos # (Auto) (0.04-0.36) K/mm3 Baso # (Auto) (0.01-0.08) K/mm3 Manual Slide Review Sodium (136-145) mEq/L Potassium (3.5-5.1) mEq/L Chloride (98-107) mEq/L Carbon Dioxide (21-32) mEq/L Anion Gap (5-15) BUN (7-18) mg/dL Creatinine (0.55-1.02) mg/dL Est Cr Clr Drug Dosing Estimated GFR (MDRD) (>60) mL/min BUN/Creatinine Ratio (14-18) Glucose (74-106) mg/dL Calcium (8.5-10.1) mg/dL Ferritin 1504 H (8-252) ng/ml Total Bilirubin (0.2-1.0) mg/dL AST (15-37) U/L ALT (14-59) U/L Alkaline Phosphatase (46-116) U/L Lactate Dehydrogenase (81-234) U/L Troponin I (0.00-0.056) ng/mL C-Reactive Protein (<1.0) mg/dL Total Protein (6.4-8.2) g/dl Albumin (3.4-5.0) g/dl Globulin gm/dL Albumin/Globulin Ratio (1-2) SARS-CoV-2 RNA ([facility]) (NEGATIVE) Group A Strep (PCR) Not detected (NOT DETECT) Meds: Medications Generic Name Dose Route Start Last Admin Trade Name Freq PRN Reason Stop Dose Admin Sodium Chloride 1,000 mls @ 1,000 mls/hr 03/25/20 22:15 03/25/20 22:34 Normal Saline IV 1,000 mls/hr ASDIRECTED SUJIT Administration - Radiology Interpretation Free Text/Narrative:: X-ray shows old changes in the right base that are very similar to a chest x-ray that was done in May 2019. There is no groundglass fluffy appearance of Covid lung. - Re-Assessments/Exams Free Text/Narrative Re-Assessment/Exam: 03/26/20 00:30 I have spoken twice to the daughter regarding the patient's status. Regarding her Covid positive status. Her lungs really do not look any different than they did back in May 2019. There is no fluffy infiltrates to suggest a severe Covid infection. Her blood work her ferritin LDH C-reactive protein are minimally elevated compared to Covid patients who are extremely sick. The patient states she wants to go home and as long as she is on 3 L/min by nasal cannula of oxygen her O2 sats are in the low 90s and sometimes mid 90s. In a place her on some dexamethasone for the next 3 or 4 days and I have encouraged her to stay on her oxygen consistently at home until she starts feeling better. And if there is any change or worsening she is to return to the ER. Departure - Departure Time of Disposition: 00:31 Disposition: Home, Self-Care 01 Condition: Poor Clinical Impression: Lab test positive for detection of COVID-19 virus, COPD exacerbation, Shortness of breath, Dehydration, Renal insufficiency, Hypokalemia - Discharge Information *PRESCRIPTION DRUG MONITORING PROGRAM REVIEWED*: Not Applicable *COPY OF PRESCRIPTION DRUG MONITORING REPORT IN PATIENT TANISHA: Not Applicable Prescriptions: dexAMETHasone [Dexamethasone] 8 mg PO BID #8 tablet Instructions: COVID-19 Frequently Asked Questions Referrals: Ellen Hernandez PA-C [Primary Care Provider] - Forms: ED Department Discharge Additional Instructions: Continue with your oxygen at 3 L/min nasal cannula and be as consistent as you possibly can at home, take the dexamethasone twice a day for the next 4 days, you need to drink more fluids because your dehydration is affecting your breathing, if your symptoms obviously worsen then you need to return to the ER, just by guessing when your symptoms started (the infection probably started about 8 days ago) you will need to be under quarantine for another 6 days from today, follow-up with your doctor after 6 days, return to the ER if needed Sepsis Event Note (ED) - Evaluation Sepsis Screening Result: No Definite Risk - Focused Exam Vital Signs: Vital Signs Temp Pulse Resp BP Pulse Ox 03/25/20 21:36 97.6 F 69 16 117/52 L 85 L - My Orders Last 24 Hours: My Active Orders 03/25/20 22:04 CXR [Chest 1V Frontal] [CR] Stat 03/25/20 22:05 EKG 12 Lead [EKG Documentation Completion] [RC] STAT UA W/MICROSCOPIC [URIN] Stat 03/25/20 22:15 Sodium Chloride 0.9% [Normal Saline] 1,000 ml IV ASDIRECTED - Assessment/Plan Last 24 Hours: My Active Orders 03/25/20 22:04 CXR [Chest 1V Frontal] [CR] Stat 03/25/20 22:05 EKG 12 Lead [EKG Documentation Completion] [RC] STAT UA W/MICROSCOPIC [URIN] Stat 03/25/20 22:15 Sodium Chloride 0.9% [Normal Saline] 1,000 ml IV ASDIRECTED
--- NOTE | 2020-03-26 08:56 | CR ---
Chest: Portable view of the chest was obtained. Comparison: Prior chest x-ray in 05/27/19. Linear scarring is seen within the right lung base. Lungs otherwise are clear. Heart size and mediastinum are normal. Bony structures are grossly intact. Impression: 1. Linear scarring within the right lung base. 2. Nothing acute is otherwise appreciated. Diagnostic code #2
== END 2020-03-26 01:15 | disposition home or self-care (01) ==
LOC: JD.ED 21:12
DX: U07.1 COVID-19 (principal); J44.1 Chronic obstructive pulmonary disease with (acute) exacerbation; E86.0 Dehydration; E87.6 Hypokalemia; N28.9 Disorder of kidney and ureter, unspecified; I10 Essential (primary) hypertension; E78.00 Pure hypercholesterolemia, unspecified; M10.9 Gout, unspecified; E11.9 Type 2 diabetes mellitus without complications; E03.9 Hypothyroidism, unspecified; E66.9 Obesity, unspecified; Z87.891 Personal history of nicotine dependence; Z79.82 Long term (current) use of aspirin; Z79.899 Other long term (current) drug therapy
CPT/HCPCS: 36415; 71045; 80053; 82728; 83615; 84484; 85025; 86140; 87635; 87651; 93005; 99285; J7030; 93010; 99284; U0002